=== PATIENT | female | born 1995 | race Caucasian/White ===

== ENCOUNTER 2017-10-21 14:52 | Emergency (ER) | payer SELFPAY ==
[~2017-10-21] VITALS: Ht 165.1 cm; Wt 61.2 kg
[2017-10-21] MEDS ORDERED: IV NORMAL SALINE 1,000ML 1,000 ML IV ONE (15:00)
[2017-10-21 15:40] LABS: BASO % 0 % (0-3); EOS % 1 % (0-3); HEMATOCRIT 39.9 % (36.0-47.0); HEMOGLOBIN 13.3 g/dL (12.0-15.5); LYMPH % 15 % (24-48); MEAN CORPUSCULAR HEMOGLOBIN 31 pg (25-35); MEAN CORPUSCULAR HGB CONC 33 g/dL (31-37); MEAN CORPUSCULAR VOLUME 92 fL (79-100); MONO # 0.4 x10^3/uL (0.0-1.1); MONO % 6 % (0-9); NEUT # 5.1 x10^3uL (1.8-7.7); NEUT % 78 % (31-73); PLATELET COUNT 207 x10^3/uL (140-400); RED BLOOD COUNT 4.37 x10^6/uL (3.50-5.40); RED CELL DISTRIBUTION WIDTH 13.6 % (11.5-14.5); WHITE BLOOD COUNT 6.5 x10^3/uL (4.0-11.0)
--- NOTE | 2017-10-21 15:52 | PHYS DOC ---
Past History Past Medical History: Seizure Past Surgical History: No Surgical History Additional Smoking Information: "YEARS AGO" Alcohol Use: None Additional Alcohol Information: OCCASIONAL BEFORE BECOMING Drug Use: None Adult General Chief Complaint Chief Complaint: SYNCOPE HPI HPI 22-year-old female patient brought in by EMS because of possible seizure. Patient is at 8 weeks of gestation with LMP of August 23, 2017 without starting [employer] and states she had frequent seizure that stopped 6 years ago and does not take any medication now. Patient state she was walking at fourth and dizziness with near syncope feeling. Coworkers state the catcher her before she had a fall and she did not have seizure activity. EMS reported the patient keeping her eyes closed and did not answer questions but with sternal rub she opened her eyes and answered all of the questions. Patient denies headache and focal neurodeficit, lack of sleep or using drugs or alcohol, vaginal bleeding or abdominal pain. Review of Systems Review of Systems Constitutional: Denies fever or chills [] Eyes: Denies change in visual acuity, redness, or eye pain [] HENT: Denies nasal congestion or sore throat [] Respiratory: Denies cough or shortness of breath [] Cardiovascular: No additional information not addressed in HPI [] GI: Denies abdominal pain, nausea, vomiting, bloody stools or diarrhea [] : Denies dysuria or hematuria [] Musculoskeletal: Denies back pain or joint pain [] Integument: Denies rash or skin lesions [] Neurologic: Denies headache, focal weakness or sensory changes [] Endocrine: Denies polyuria or polydipsia [] All other systems were reviewed and found to be within normal limits, except as documented in this note. Current Medications Current Medications Current Medications Medications (Trade) Dose Ordered Sig/Michael Start Time Stop Time Status Last Admin Dose Admin Sodium Chloride 1,000 ml @ 1,000 mls/hr 1X ONCE 10/21/17 15:00 10/21/17 15:59 10/21/17 15:17 1,000 MLS/HR Allergies Allergies Allergies Coded Allergies Type Severity Reaction Last Updated Verified amoxicillin Allergy Unknown 10/21/17 Yes Physical Exam Physical Exam Constitutional: Well developed, well nourished, mild distress, non-toxic appearance. [] HENT: Normocephalic, atraumatic, bilateral external ears normal, oropharynx moist, no oral exudates, nose normal. [] Eyes: PERRLA, EOMI, conjunctiva normal, no discharge. [] Neck: Normal range of motion, no tenderness, supple, no stridor. [] Cardiovascular:Heart rate regular rhythm, no murmur [] Lungs & Thorax: Bilateral breath sounds clear to auscultation [] Abdomen: Bowel sounds normal, soft, no tenderness, no masses, no pulsatile masses. [] Skin: Warm, dry, no erythema, no rash. [] Back: No tenderness, no CVA tenderness. [] Extremities: No tenderness, no cyanosis, no clubbing, ROM intact, no edema. [] Neurologic: Alert and oriented X 3, normal motor function, normal sensory function, no focal deficits noted. [] Psychologic: Affect normal, judgement normal, mood normal. [] Current Patient Data Vital Signs Vital Signs Date Time Temp Pulse Resp B/P (MAP) Pulse Ox O2 Delivery O2 Flow Rate FiO2 10/21/17 14:55 97.5 76 16 100 Room Air EKG EKG [] Radiology/Procedures Radiology/Procedures [] Course & Med Decision Making Course & Med Decision Making Pertinent Labs reviewed. (See chart for details) Evaluation of patient in ER showed 22 year old female patient brought in by EMS for possible seizures or syncopal episode. Patient had unremarkable physical exam and labs except for mild UTI. Patient currently is 8 weeks with good hCG level. Patient psychiatric to follow with neurologist for evaluation of seizure and [employer] for . [discharge: I've spoken with the patient and/or caregivers. I've explained the patient's condition, diagnosis and treatment plan based on information available to me at this time. I've answered the patient's and/or caregivers questions and addressed any concerns. The patient and/or caregivers have a good understanding the patient's diagnosis, condition and treatment plan as can be expected at this point. Vital signs have been stabilized. The patient's condition is stable for discharge from the emergency department. The patient will pursue further outpatient evaluation with her primary care provider or other designated consulting physician as outlined in the discharge instructions. Patient and/or caregivers are agreeable to this plan of care and follow-up instructions have been explained in detail. The patient and/or caregivers have received these instructions in written format and expressed understanding of these discharge instructions. The patient and her caregivers are aware that if any significant change in condition or worsening of symptoms should prompt him to immediately return to this of the closest emergency department. If an emergent department is not readily available I would encourage him to call 911.] Violette Disclaimer Violette Disclaimer This electronic medical record was generated, in whole or in part, using a voice recognition dictation system. Departure Departure: Impression: Primary Impression: Syncope Additional Impressions: Urinary tract infection Currently History of seizures Disposition: HOME, SELF-CARE (At 1650) Condition: IMPROVED Referrals: PCP,FANNIE (PCP) ELOISE PRESCOTT MD Patient Instructions: Syncope, Urinary Tract Infection Additional Instructions: Drink plenty of liquids Follow-up with neurologist for evaluation of seizure during Follow-up with your primary care physician in 3-5 days Return to ER if not getting better Scripts Cephalexin (KEFLEX) 500 Mg Capsule 1 CAP PO TID, #21 CAP Prov: RAFIA KNAPP MD 10/21/17 Problem Qualifiers RAFIA KNAPP MD Oct 21, 2017 15:52
[2017-10-21 15:53] LABS: ALBUMIN 3.6 g/dL (3.4-5.0); ALBUMIN/GLOBULIN RATIO 0.9 (1.0-1.7); CALCIUM 9.1 mg/dL (8.5-10.1); CREATININE 0.6 mg/dL (0.6-1.0); GFR 123.9; TOTAL BILIRUBIN 0.2 mg/dL (0.2-1.0); TOTAL PROTEIN 7.5 g/dL (6.4-8.2)
[2017-10-21 15:54] LABS: POTASSIUM 3.6 mmol/L (3.5-5.1)
[2017-10-21 16:32] LABS: BILIRUBIN,URINE NEG (NEG); CLARITY,URINE CLOUDY; COLOR,URINE YELLOW; GLUCOSE,URINE NEG (NEG)
[2017-10-21 16:33] LABS: BACTERIA,URINE MOD /HPF (0-FEW); NITRITE,URINE NEG (NEG); SQUAMOUS EPITHELIAL CELL,UR MANY /LPF; UROBILINOGEN,URINE 0.2 mg/dL (0.2 mg/dL)
[2017-10-21 16:45] VITALS: BP 106/55
[2017-10-21] MEDS ORDERED: CEPH-264 PO (16:52)
[2017-10-21 17:04] LABS: BARBITURATES NEG (NEG); BENZODIAZEPINES NEG (NEG); CANNABINOIDS POS (NEG); COCAINE NEG (NEG); METHADONE NEG (NEG); OPIATES NEG (NEG); PHENCYCLIDINE NEG (NEG)
[2017-10-21 17:05] LABS: AMPHETAMINE/METHAMPHETAMINE NEG (NEG)
== END 2017-10-21 16:56 | disposition home or self-care (01) ==
LOC: ER 14:52
DX: O26.891 Other specified pregnancy related conditions, first trimester (principal); O23.41 Unspecified infection of urinary tract in pregnancy, first trimester; R55 Syncope and collapse; Z3A.08 8 weeks gestation of pregnancy; Z87.891 Personal history of nicotine dependence; Z88.1 Allergy status to other antibiotic agents
CPT/HCPCS: 36415; 80053; 80307; 81001; 84702; 85025; 87086; 96360; 99284-25; G0479; J7030

== ENCOUNTER → 2019-07-10 | Outpatient (CLI) | payer MEDICAID ==
[~2019-07-10] MED LIST: CEPH-264 PO
--- NOTE | 2019-07-10 13:59 | RAD ---
AP and Lateral Views of the Chest 07/10/2019 12:00 AM Indication: Cough Comparison: None Findings: There is no focal consolidation or infiltrate identified. The cardiomediastinal silhouette is within normal limits. There is no evidence of pneumothorax or pleural effusion. No acute osseous abnormalities are identified. Calcification in the right axilla noted. This may represent a calcified lymph node. Prior cholecystectomy noted. Impression: No evidence of acute cardiopulmonary process. Electronically signed by: Carl Kohli MD (07/10/2019 1:56 PM) [id number]
== END | disposition home or self-care (01) ==
LOC: PMG 09:10
PROVIDERS: ATTEND Registered Nurse
DX: R07.89 Other chest pain (principal); R05 Cough; Z90.49 Acquired absence of other specified parts of digestive tract
CPT/HCPCS: 71046

== ENCOUNTER 2020-02-29 11:43 | Emergency (ER) | payer MEDICAID, OTHER ==
[~2020-02-29] VITALS: Ht 167.6 cm; Wt 61.0 kg
[2020-02-29 11:52] VITALS: BP 118/74
--- NOTE | 2020-02-29 12:00 | PHYS DOC ---
Past History Past Medical History: Seizure Past Surgical History: No Surgical History Alcohol Use: None Drug Use: None General Adult EDM: Chief Complaint: ABSCESS HPI: HPI: Patient is a 24-year-old female who presents to the emergency department for evaluation. She states that she developed a genital "cyst" or abscess, over the past few days. It is painful, and painful to urinate. She has not had any fevers or chills, or other vaginal discharge. She has not had any nausea or vomiting. There are no alleviating or exacerbating factors to her symptoms except as noted above. Review of Systems: Review of Systems: Constitutional: Denies fever or chills GI: Denies abdominal pain, nausea, vomiting, bloody stools or diarrhea : Denies dysuria, urinary frequency or hesitancy but does report discomfort with urination, denies vaginal bleeding or discharge or . Heart Score: Risk Factors: Risk Factors: DM, Current or recent (<one month) smoker, HTN, HLP, family history of CAD, obesity. Risk Scores: Score 0 - 3: 2.5% MACE over next 6 weeks - Discharge Home Score 4 - 6: 20.3% MACE over next 6 weeks - Admit for Clinical Observation Score 7 - 10: 72.7% MACE over next 6 weeks - Early Invasive Strategies Allergies: Allergies: Allergies Coded Allergies Type Severity Reaction Last Updated Verified amoxicillin Allergy Unknown 10/21/17 Yes Physical Exam: PE: PHYSICAL EXAM: CONSTITUTIONAL: Well developed, well nourished HEAD: normocephalic, atraumatic EENT: PERRL, EOMI. Conjunctivae normal color, sclerae non-icteric; moist mucous membranes. NECK: Supple, non-tender; no meningismus. LUNGS: Lungs CTA, breathing even and unlabored. Normal air movement. HEART: Regular rate and rhythm, no murmur ABDOMEN: The abdomen is soft, and non-tender, no masses or bruits. EXTREM: Normal ROM; no deformity, no calf tenderness. Normal pulses palpable in all extremities. There is no pedal edema. SKIN: No rash; no diaphoresis NEURO: Alert; normal speech and cognition; CN's grossly intact; strength grossly intact without focal deficit. GENITOURINARY: There is a letty sized pustular lesion just external to the left labia minora, which is tender to palpation. There are no other visualized lesions. Exam was performed in the presence of the patient's nurse, Saadia. EKG: EKG: [] Radiology/Procedures: Radiology/Procedures: [] Course & Med Decision Making: Course & Med Decision Making INCISION AND DRAINAGE PROCEDURE NOTE: The abscess located on the left labial area was prepped with Betadine, anesthetized with 1% lidocaine with epinephrine and bicarbonate, and incised with #11 blade. A moderate amount of pus was obtained from the wound, the wound was probed with a blunt forceps and packed with gauze packing. The patient tolerated procedure well. Wound care instructions and packing change instructions were discussed with the patient. Procedure was performed in the presence of the patient's nurse, Saadia. Dragon Disclaimer: Dragon Disclaimer: This electronic medical record was generated, in whole or in part, using a voice recognition dictation system. Departure Departure: Impression: Primary Impression: Bartholin's gland abscess Disposition: HOME/RESIDENCE PRIOR TO ADM Condition: STABLE Referrals: ROQUE THAKKAR (PCP) Patient Instructions: Bartholin's Cyst or Abscess, Incision and Drainage Scripts Sulfamethoxazole/Trimethoprim (BACTRIM 400-80 MG TABLET) 1 Each Tablet 1 TAB PO BID for - for 7 Days, #14 TAB 0 Refills Prov: OSMIN RICHARD MD 02/29/20 Justification of Admission: Justification of Admission: Justification of Admission Dx: N/A OSMIN RICHARD MD Feb 29, 2020 12:00
[2020-02-29] MEDS ORDERED: SODIUM BICARBONATE 50 MEQ/50 ML VIAL. ONE (12:11)
[2020-02-29] MEDS ORDERED: LIDOCAINE 1%/EPI 1:100,000 20 ML VIAL. IJ ONE (12:15)
[2020-02-29] MEDS ORDERED: SULF1TAB23 PO (12:46)
== END 2020-02-29 12:54 | disposition home or self-care (01) ==
LOC: ER 11:43
DX: N75.1 Abscess of Bartholin's gland (principal); Z88.1 Allergy status to other antibiotic agents
CPT/HCPCS: 56420; 99284